=== PATIENT | female | born 1970 | race Hispanic/Latino ===

== ENCOUNTER → 2022-09-29 12:29 | Outpatient (CLI) | payer SELFPAY ==
--- NOTE | ~2022-09-29 | MMUS_ITS ---
EXAMINATION: MM diagnostic sim BI w buddy, US breast RT limited HISTORY: Palpable right axillary abnormality TECHNIQUE: Additional 3-D tomosynthesis images of the breasts were performed and synthetic 2-D images were generated. CAD analysis was submitted and interpreted. High resolution Limited right breast ult rasound was performed. COMPARISON: No prior studies for comparison. BREAST PARENCHYMAL COMPOSITION: BREAST PARENCHYMAL COMPOSITION: There are scattered areas of fibroglandular density. FINDINGS: MAMMOGRAPHIC FINDINGS: There are no suspicious masses, calcifications or architectural distortion in either breast to sugges t. ULTRASOUND: Limited ultrasound of the right axilla: Normal heterogeneous echotexture without focal solid or cysti c mass. IMPRESSION: 1. No evidence for malignancy in either breast. 2. Routine yearly screening mammogram and regular clinical breast examination are recommended. BI-RADS Category 1: Negative Reviewed, dictated and finalized at location A. IMPRESSION: 1. No evidence for malignancy in either breast. 2. Routine yearly screening mammogram and regular clinical breast examination a re recommended. BI-RADS Category 1: Negative
== END ==
PROVIDERS: PCP Obstetrics & Gynecology; Visit Provider Obstetrics & Gynecology
DX: Z12.31 Encounter for screening mammogram for malignant neoplasm of breast (principal)
CPT/HCPCS: 76642; 77062; 77066; G0279

== ENCOUNTER 2025-01-14 11:26 | Emergency (ER) | payer SELFPAY ==
--- NOTE | ~2025-01-14 | CT_ITS ---
EXAMINATION: CT abdomen pelvis w con DATE: 01/14/2025 14:51 INDICATION: Epigastric abdominal pain TECHNIQUE: Computed tomography (CT) of the abdomen and pelvis was performed with 100 mL Omnipaque-350 intravenous contrast. Automated exposure control and iterative reconstruction technique were employe d. The dose-length product was 312.07 mGy-cm. COMPARISON: 03/18/2019. FINDINGS: Lower thorax: Unremarkable Liver: Stable peripheral hypodensity in the left lobe, likely cyst or hemangioma. Biliary/Gallbladder: Gallbladder is normal. No bile duct dilation. Pancreas: No mass or duct dilation. Spleen: Normal. Adrenals: Stable left adrenal lesion, likely adenoma. Normal right adrenal gland. Kidneys: No suspicious mass, obstructing stone, or hydronephrosis. There is contrast excretion into t he renal collecting systems. GI tract: No small or large bowel dilation. Normal appendix. Mesentery/Peritoneum: No ascites, mass, or free air. Retroperitoneum: No mass. Pelvis: Pelvic organs are within normal limits. Soft Tissues: Small fat-containing uncomplicated umbilical hernia. Bones: No acute osseous finding. IMPRESSION: No acute abdominopelvic process detected Reviewed, dictated and finalized at location K.
[2025-01-14 11:56] VITALS: BP 108/67; PULSE 84; RESP 20; TEMP 36.6; O2SAT 99
--- NOTE | 2025-01-14 13:33 | ED.GENADULT ---
HPI - General Adult General Chief complaint: Abdominal Pain Stated complaint: abdominal pain, nausea Time Seen by Provider: 01/14/25 13:07 History of Present Illness HPI narrative: 54-year-old female presenting to the emergency department for evaluation of epigastric abdominal pain. Patient reports that she does have a prior history of gastritis and has been taking pantoprazole and motor edema patient has also been taking naproxen. Patient had a evaluation in the emergency department approximately 8 days ago was told she had worsening symptoms she would need to have follow-up with GI. Patient was not provided outpatient follow-up for GI. Patient is [id number], translation services were utilized. Related Data Allergies Allergy/AdvReac Type Severity Reaction Status Date / Time No Known Allergies Allergy Verified 01/14/25 12:07 Review of Systems Review of Systems: All systems reviewed & are unremarkable except as noted in HPI and below Exam Narrative: APPEARANCE: Well appearing, no pain, no distress, well-nourished. HEAD: normocephalic, atraumatic. EYES: PERRLA/EOMI, conjunctivae clear. NOSE: Normal no drainage EARS:TMS clear with good light reflex. THROAT: Pharynx clear, no exudate. NECK: Supple. No adenopathy, no masses. RESPIRATORY: Airway patent, respirations nonlabored. Clear to auscultation bilaterally, no rales, rhonchi, wheezing. CARDIOVASCULAR: Regular rate and rhythm without murmurs rubs or gallops. ABDOMINAL: Soft, nontender, nondistended, normal bowel sounds MUSCULOSKELETAL: Moves all extremities. Strength/ROM intact, No edema, No calf tenderness. NEURO: Alert. Cranial nerves II through XII intact. Good gait. Good coordination SKIN: Warm, dry. Normal Color Course Vital Signs Vital signs: Vital Signs Temperature 97.9 F 01/14/25 11:56 Pulse Rate 84 01/14/25 11:56 Respiratory Rate 20 01/14/25 11:56 Blood Pressure 108/67 01/14/25 11:56 Pulse Oximetry 99 01/14/25 11:56 Oxygen Delivery Room Air 01/14/25 11:56 Temperature 97.9 F 01/14/25 11:56 Pulse Rate 68 01/14/25 16:23 Respiratory Rate 18 01/14/25 16:23 Blood Pressure 107/69 01/14/25 16:23 Pulse Oximetry 98 01/14/25 16:23 Oxygen Delivery Room Air 01/14/25 11:56 Medical Decision Making MDM Narrative Medical decision making narrative: 54-year-old female present to the emergency department for evaluation for epigastric abdominal pain. Symptoms were resolved after the GI cocktail. Patient was treated with IV Protonix as well. Patient is afebrile with no leukocytosis hemoglobin of 13.5. Patient's INR 0.9 and patient has no acute abnormalities on her CMP with a negative lipase. CT abdomen pelvis shows no acute abnormalities. On re-evaluation patient states she does feel significantly improved and patient and family are updated the results of the workup and plan for treatment for home and outpatient follow-up. Differential Diagnosis Differential Diagnosis: Colitis, diverticulitis, bowel obstruction, hiatal hernia, gastritis, esophagitis, esophageal obstruction Vital Signs Vital Signs: Vital Signs Temperature 97.9 F 01/14/25 11:56 Pulse Rate 84 01/14/25 11:56 Respiratory Rate 20 01/14/25 11:56 Blood Pressure 108/67 01/14/25 11:56 Pulse Oximetry 99 01/14/25 11:56 Oxygen Delivery Room Air 01/14/25 11:56 Temperature 97.9 F 01/14/25 11:56 Pulse Rate 68 01/14/25 16:23 Respiratory Rate 18 01/14/25 16:23 Blood Pressure 107/69 01/14/25 16:23 Pulse Oximetry 98 01/14/25 16:23 Oxygen Delivery Room Air 01/14/25 11:56 Lab Data Lab results reviewed: Yes I reviewed the patient's lab results. 01/14/25 13:56 01/14/25 13:56 Labs: Lab Results 01/14/25 01/14/25 Range/Units 13:56 14:08 WBC 7.1 (4.5-10.0) K/mm3 RBC 4.56 (4.2-5.4) M/mm3 Hgb 13.5 (12.0-15.0) g/dL Hct 41.9 (37.0-47.0) % MCV 91.9 (80-100) fl MCH 29.6 (26-34) pg MCHC 32.2 (32-36) g/dl RDW 12.8 (11.5-14.5) % Plt Count 266 (150-375) k/mm3 MPV 10.2 (7.4-10.4) fl Immature Gran % (Auto) 0.1 (0-0.5) % Neut % (Auto) 65.3 (45.5-73.1) % Lymph % (Auto) 28.1 (18.3-44.2) % [place] % (Auto) 5.6 (2.6-8.5) % Eos % (Auto) 0.6 (0-4.4) % Baso % (Auto) 0.3 (0.2-1.2) % Lymph # (Auto) 1.99 (0.9-3.2) K/mm3 [place] # (Auto) 0.4 (0.1-0.6) K/mm3 Eos # (Auto) 0.0 (0-0.3) K/mm3 Baso # (Auto) 0.0 (0.0-0.1) K/mm3 Abs Immat Gran (auto) 0.01 (0.00-0.031) K/mm3 Absolute Neuts (auto) 4.6 (1.3-6.7) K/mm3 Absolute Nucleated RBC 0.000 (0.0-0.012) K/mm3 Nucleated RBC % 0.0 (0.0-0.2) % PT 12.8 (11.1-14.7) Seconds INR 0.9 APTT 31.1 (22.3-36.8) Seconds Sodium 142 (137-145) mmol/L Potassium 4.0 (3.4-5.0) mmol/L Chloride 107 (98-107) mmol/L Carbon Dioxide 27 (22-30) mmol/L Anion Gap 8 (4-12) mmol/L BUN 11 (7-17) mg/dL Creatinine 0.76 (0.7-1.0) mg/dL Estim Creat Clear Calc 59 ml/min Estimated GFR > 60 (59 - ) Glucose 105 (65-110) mg/dL Lactic Acid 1.2 (0.7-2.0) mmol/L Calcium 9.5 (8.4-10.2) mg/dL Total Bilirubin 0.8 (0.2-1.3) mg/dL AST 43 H (14-36) U/L ALT 30 (6-35) U/L Alkaline Phosphatase 76 (38-126) U/L Total Protein 8.4 H (6.3-8.2) g/dL Albumin 4.6 (3.5-5.1) g/dL Lipase 82 (23-300) U/L Imaging Data Radiologist's impression: Impressions Abdomen/Pelvis CT 01/14/25 15:03 IMPRESSION: No acute abdominopelvic process detected Discharge Plan Discharge Clinical Impression: Epigastric abdominal pain Patient Disposition: Home Condition: Stable Instructions: Antibiotic Form, Diet for Stomach Ulcers and Gastritis (ED), Abdominal Pain (ED) Additional Instructions: Avoid NSAIDs such as naproxen. Take your pantoprazole and famotidine as directed. Follow a bland diet. Maalox as needed for recurrent symptoms. Have close follow-up with GI to for further evaluation including possible endoscopy. If you have any worsening symptoms please call or return to the emergency department. Patient Language: Indonesian Follow-up/Referrals: Austin Purcell MD [Primary Care Provider] - Francisco Rosenthal MD [Physician] -
[2025-01-14] MEDS: BELLADONNA ALK/PHENOB ELIX 10 ML, MAG HYDROX/ALUMINUM HYD/SIMETH 30 ML, LIDOCAINE 2% VI... PO (13:39)
[2025-01-14] MEDS: PANTOPRAZOLE SODIUM IV 40 MG VIAL IV PUSH (13:46)
[2025-01-14 13:48] VITALS: BP 129/76; PULSE 90; RESP 14; O2SAT 100
[2025-01-14 14:05] LABS: Hematocrit 41.9 % (37.0-47.0); Hemoglobin 13.5 g/dL (12.0-15.0); Immature Granulocyte Percent A 0.1 % (0-0.5); Lymphocytes Absolute Auto 1.99 K/mm3 (0.9-3.2); Mean Corpuscular HGB Conc 32.2 g/dl (32-36); Mean Corpuscular Hemoglobin 29.6 pg (26-34); Mean Corpuscular Volume 91.9 fl (80-100); Nucleated Red Blood Cells Absolute Auto 0.000 K/mm3 (0.0-0.012); Nucleated Red Blood Cells Perc 0.0 % (0.0-0.2); Platelet Count Result 266 k/mm3 (150-375); Red Blood Count 4.56 M/mm3 (4.2-5.4); White Blood Count 7.1 K/mm3 (4.5-10.0)
[2025-01-14 14:16] LABS: INR 0.9; Prothrombin Time 12.8 Seconds (11.1-14.7)
[2025-01-14 14:17] LABS: Partial Thromboplastin Time 31.1 Seconds (22.3-36.8)
[2025-01-14 14:20] LABS: Alanine Aminotransferase 30 U/L (6-35); Albumin Level 4.6 g/dL (3.5-5.1); Alkaline Phosphatase 76 U/L (38-126); Anion Gap 8 mmol/L (4-12); Aspartate Amino Transferase 43 U/L (14-36); Bilirubin,Total 0.8 mg/dL (0.2-1.3); Blood Urea Nitrogen 11 mg/dL (7-17); Calcium 9.5 mg/dL (8.4-10.2); Carbon Dioxide 27 mmol/L (22-30); Chloride 107 mmol/L (98-107); Estimated CRCL calculation 59 ml/min; Estimated Glomerular Filt Rate > 60; Glucose 105 mg/dL (65-110); Lipase 82 U/L (23-300); Potassium 4.0 mmol/L (3.4-5.0); Sodium 142 mmol/L (137-145); Total Protein 8.4 g/dL (6.3-8.2)
[2025-01-14 16:23] VITALS: BP 107/69; PULSE 68; RESP 18; O2SAT 98
== END 2025-01-14 16:25 | disposition home or self-care (01) ==
PROVIDERS: Emergency Provider Emergency Medicine; PCP Obstetrics & Gynecology
DX: R10.13 Epigastric pain (principal)
CPT/HCPCS: 36415; 74177; 80053; 83605; 83690; 85025; 85610; 85730; 96374; 99284; A9270; J2470; Q9967

== ENCOUNTER 2025-02-13 21:41 | Emergency (ER) | payer SELFPAY ==
--- NOTE | ~2025-02-13 | XR_ITS ---
Portable chest x-ray Comparison: None Clinical History: Pain Findings: Lungs are clear, without focal consolidation or pleural effusion. Cardiomediastinal silho uette is unremarkable. Bones and soft tissues are unremarkable. Impression: Normal chest. Reviewed, dictated and finalized at location M. Impression: Normal chest.
--- NOTE | ~2025-02-13 | CT_ITS ---
CT of the Abdomen and Pelvis: Indication: Abdominal pain Technique: 2.5 mm axial scans were obtained through the abdomen and pelvis following intravenous adm inistration of 100 cc of Omnipaque 350. Dose reduction technique was used on this scan by utilizing a utomated exposure control and iterative reconstruction technique. The dose-length product (DLP) was 3 20.94 mGy-cm. COMPARISON: 01/14/2025 and 03/18/2019 Findings: Scans through the lung bases are unremarkable. The liver, spleen, pancreas, gallbladder, revealing, and kidneys are within normal limits. 1.9 cm lef t adrenal nodule is stable dating back to 2018. No evidence of aortic aneurysm. No lymphadenopathy. No bowel obstruction or bowel wall thickening. There is no evidence to suggest acute appendicitis. Images through the pelvis were performed. Urinary bladder unremarkable. No pelvic mass. No ascites. Impression: No acute abnormality. 1.9 cm left adrenal nodule is stable since 2018, therefore consistent with benign adenoma. Reviewed, dictated and finalized at location . Impression: No acute abnormality. 1.9 cm left adrenal nodule is stable since 2018, therefore consistent with sylvester gn adenoma.
[2025-02-13 21:45] VITALS: BP 138/79; PULSE 65; RESP 16; TEMP 36.6; O2SAT 100
[2025-02-14 00:29] VITALS: PULSE 53; RESP 18; O2SAT 100
[2025-02-14 00:30] VITALS: PULSE 60; RESP 19; O2SAT 99
[2025-02-14 00:31] VITALS: BP 144/79; PULSE 57; RESP 22; O2SAT 100
--- NOTE | 2025-02-14 00:32 | ECG_ITS ---
Test Date: 2025-02-14 02:16:07 Measurements Intervals Inez Rate: 61 P: 20 SD: 127 QRS: -2 QRSD: 97 T: 14 QT: 433 QTc: 437 Interpretive Statements SINUS RHYTHM BORDERLINE T WAVE ABNORMALITY- INFERIOR LEADS BASELINE ARTIFACT- I, II, III, AVR, AVL, AVF BORDERLINE ECG No previous ECG available for comparison Electronically Signed On 02-14-2025 06:23:52 CDT by Bud Rodriguez D.O.
--- NOTE | 2025-02-14 00:56 | PC.NURSE ---
pt refused lab draw from pct. EDOmari Andino aware and will speak with pt.
[2025-02-14 01:04] VITALS: PULSE 69; RESP 16; O2SAT 100
[2025-02-14] MEDS: FAMOTIDINE 20 MG/2 ML VIAL IV PUSH (01:56)
--- NOTE | 2025-02-14 01:56 | ED.ABDPAIN ---
HPI - Abdominal Pain General Chief Complaint: Abdominal Pain <Shelby Santana PA-C - Last Filed: 02/15/25 18:15> Stated Complaint: abdominal pain x3 months <Shelby Santana PA-C - Last Filed: 02/15/25 18:15> Time Seen by Provider: 02/14/25 00:29 <Shelby Santana PA-C - Last Filed: 02/15/25 18:15> History of Present Illness HPI narrative: 54-year-old female presents to the emergency department with family at bedside for epigastric abdominal pain for 9 weeks. Patient describes the pain in her epigastrium as an intermittent stabbing pain and bloating sensation with associated belching. She states the pain feels immediately better after eating and then worsens again. She reports associated nausea but no vomiting. She states over the past 3 days the pain is now radiated into her right lower chest. She is also endorsing urinary frequency over the past 3 days. She denies fever or dysuria. The patient was evaluated in our ED 1 month ago for epigastric abdominal pain. At the time she had a negative workup including a CT abdomen pelvis. She is advised follow-up with GI. Her family bedside states she has been to several different ERs with the same complaints and has had multiple workups which have been largely unrevealing. She is prescribed Protonix 40 mg which she has been taking with some improvement. They note that she recently went to [place] a couple weeks ago to visit a ?[facility] doctor? that gave her Toradol for her pain which she has been taking without improvement. The patient also reportedly followed up with [facility] and [place] where she had a colonoscopy and endoscopy performed a few weeks ago. Pt's family at bedside states they were told that there was ?swelling in the stomach? after the endoscopy. They state they are still waiting for the official report and are scheduled to f/u with the GI clinic on 02/23/2025. She denies prior abdominal surgeries. Last bowel movement was today and normal. Denies melena or hematochezia. <Shelby Santana PA-C - Last Filed: 02/15/25 18:15> Related Data Allergies/Adverse Reactions: Allergies Allergy/AdvReac Type Severity Reaction Status Date / Time No Known Allergies Allergy Verified 01/14/25 12:07 <Shelby Santana PA-C - Last Filed: 02/15/25 18:15> Review of Systems Review of Systems: All systems reviewed & are unremarkable except as noted in HPI and below <Shelby Santana PA-C - Last Filed: 02/15/25 18:15> Exam Narrative: GENERAL: Well-appearing, well-nourished, and in no acute distress. HEAD: Normocephalic, atraumatic. EYES: EOMI. ENT: Nares clear, no rhinorrhea or epistaxis. Mucous membranes moist. NECK: Supple. CHEST: Clear to auscultation. No respiratory distress. Tenderness to right chest wall and palpation with no overlying skin changes or deformities. Right breast is unremarkable with no areas of erythema no induration or fluctuation, no nipple inversion or drainage HEART: Regular rate and rhythm. No murmur heard. Normal peripheral pulses. ABDOMEN: Normoactive bowel sounds. Abdomen soft with tenderness in the epigastrium. No rebound or rigidity. No right upper quadrant tenderness, negative Guerrero sign EXTREMITIES: Normal range of motion. No edema. SKIN: Warm, dry, no rash. NEURO: No focal deficits. Alert and oriented x3 <Shelby Santana PA-C - Last Filed: 02/15/25 18:15> Course GASTROINTESTINAL TECHNICIAN/PA Physician Supervision Patient signed out to me pending urinalysis and CT scan. CT scan unremarkable. Urinalysis with some abnormalities. I did assess patient at bedside, interpretive services [facility] #[id number] was used. Patient does note that she has been having urinary urgency and frequency but denies any dysuria or hematuria. For this reason we will treat as urinary tract infection given she seems symptomatic. First dose antibiotic given the emergency department and the rest of the course prescribed. I did review her medications that she is taking and she is on Protonix, fiber, papaya enzyme, Atarax, cimetidine, and ketorolac. She notes that she wakes up very tired and dizzy. She was prescribed the Atarax from a [place] [facility] in [place]. When asked if it was for itching or anxiousness it seems that was for the latter. We discussed that she could trial cutting the pill in half as it is 50 mg verses discontinuing it to see if her morning symptoms resolve. She denies any antibiotic allergies. She has follow-up [facility]. She does not have a primary care physician so provided contact information for 1. Otherwise stable for discharge. <Kenyatta Parrish MD - Last Filed: 02/14/25 05:04> Vital Signs Vital signs: Vital Signs Temperature 98 F 02/13/25 21:45 Pulse Rate 65 02/13/25 21:45 Respiratory Rate 16 02/13/25 21:45 Blood Pressure 138/79 02/13/25 21:45 Pulse Oximetry 100 02/13/25 21:45 Oxygen Delivery Room Air 02/13/25 21:45 Temperature 98 F 02/13/25 21:45 Pulse Rate 69 02/14/25 01:04 Respiratory Rate 16 02/14/25 01:04 Blood Pressure 144/79 H 02/14/25 00:31 Pulse Oximetry 100 02/14/25 01:04 Oxygen Delivery Room Air 02/13/25 21:45 <Shelby Santana PA-C - Last Filed: 02/15/25 18:15> Vital Signs Temperature 98 F 02/13/25 21:45 Pulse Rate 65 02/13/25 21:45 Respiratory Rate 16 02/13/25 21:45 Blood Pressure 138/79 02/13/25 21:45 Pulse Oximetry 100 02/13/25 21:45 Oxygen Delivery Room Air 02/13/25 21:45 Temperature 98 F 02/13/25 21:45 Pulse Rate 69 02/14/25 01:04 Respiratory Rate 16 02/14/25 01:04 Blood Pressure 144/79 H 02/14/25 00:31 Pulse Oximetry 100 02/14/25 01:04 Oxygen Delivery Room Air 02/13/25 21:45 <Kenyatta Parrish MD - Last Filed: 02/14/25 05:04> MDM - Abdominal Pain MDM Narrative Medical decision making narrative: 54-year-old female presents emergency department for epigastric abdominal pain for the past 9 weeks. Patient endorsing intermittent stabbing pain, bloating and belching. Patient has been evaluated in our ED and reportedly and other ERs with reported negative workups. She has been prescribed Protonix 40 mg which she has been taking with reported improvement. Triage vitals are stable. Patient is afebrile and nontoxic appearing and resting comfortably in exam bed. She does have tenderness in epigastrium into the right chest wall. Shared decision making regarding workup today. They are amenable to EKG, troponin, chest x-ray given reported radiation of pain to the right chest wall. Patient is also agreeable to basic lab work including CBC, CMP, lipase and UA. Patient would like to refrain from imaging until results of lab tests come back and see if she responds well to a GI cocktail and Pepcid EKG shows normal sinus rhythm with a rate of 61 ppm, normal TN interval, normal QRS duration, normal QTC, no ischemic changes. Troponin is undetectable. CXR w/o acute findings. CBC without leukocytosis or anemia. Chemistries with an AST of 41, most recent in January was 43. ALT is 53, most recent in January was 53. Bilirubin and alk-phos are within normal limits. Lipase is within normal limits. Patient re-evaluated. States she had improvement after the Pepcid and GI cocktail but feels her pain is returning. Shared decision making regarding obtaining a CT scan today. She states that she feels that this pain is different than her last presentation and that is now radiating into her right lower chest which is concerning to her. Pt would like to get CT abd/pelvis given mildly elevated liver enzymes. Pending CT results at time of sign-out to Dr. Parrish. <Shelby Santana PA-C - Last Filed: 02/15/25 18:15> Lab Data Result diagrams: 02/14/25 02:00 02/14/25 02:00 <Shelby Santana PA-C - Last Filed: 02/15/25 18:15> Labs: Lab Results 02/14/25 02/14/25 Range/Units 02:00 03:27 WBC 6.6 (4.5-10.0) K/mm3 RBC 4.25 (4.2-5.4) M/mm3 Hgb 12.5 (12.0-15.0) g/dL Hct 39.3 (37.0-47.0) % MCV 92.5 (80-100) fl MCH 29.4 (26-34) pg MCHC 31.8 L (32-36) g/dl RDW 12.6 (11.5-14.5) % Plt Count 224 (150-375) k/mm3 MPV 10.1 (7.4-10.4) fl Immature Gran % (Auto) 0.2 (0-0.5) % Neut % (Auto) 53.1 (45.5-73.1) % Lymph % (Auto) 38.5 (18.3-44.2) % Sargent % (Auto) 6.4 (2.6-8.5) % Eos % (Auto) 1.5 (0-4.4) % Baso % (Auto) 0.3 (0.2-1.2) % Lymph # (Auto) 2.54 (0.9-3.2) K/mm3 Sargent # (Auto) 0.4 (0.1-0.6) K/mm3 Eos # (Auto) 0.1 (0-0.3) K/mm3 Baso # (Auto) 0.0 (0.0-0.1) K/mm3 Abs Immat Gran (auto) 0.01 (0.00-0.031) K/mm3 Absolute Neuts (auto) 3.5 (1.3-6.7) K/mm3 Absolute Nucleated RBC 0.000 (0.0-0.012) K/mm3 Nucleated RBC % 0.0 (0.0-0.2) % Sodium 133 L (137-145) mmol/L Potassium 3.9 (3.4-5.0) mmol/L Chloride 103 (98-107) mmol/L Carbon Dioxide 24 (22-30) mmol/L Anion Gap 6 (4-12) mmol/L BUN 13 (7-17) mg/dL Creatinine 0.79 (0.7-1.0) mg/dL Estim Creat Clear Calc 59 ml/min Estimated GFR > 60 (59 - ) Glucose 109 (65-110) mg/dL Calcium 9.1 (8.4-10.2) mg/dL Total Bilirubin 0.9 (0.2-1.3) mg/dL AST 41 H (14-36) U/L ALT 53 H (6-35) U/L Alkaline Phosphatase 73 (38-126) U/L Troponin I < 0.012 (0.000-0.034) ng/mL Total Protein 7.7 (6.3-8.2) g/dL Albumin 4.4 (3.5-5.1) g/dL Lipase 104 (23-300) U/L Urine Color Nakia (Yellow) Urine Appearance Clear (Clear) Urine pH 6.0 (5.0-9.0) Ur Specific [place] 1.009 (1.001-1.035) Urine Protein Negative (Negative) mg/dL Urine Glucose (UA) Negative (Negative) mg/dL Urine Ketones Negative (Negative) mg/dL Ur Blood (Man) Trace (Negative) Urine Nitrate Negative (Negative) Urine Bilirubin Negative (Negative) Urine Urobilinogen 0.2 (<2.0) mg/dL Leukocyte Esterase Rfl 2+ H (Negative) LUIS MANUEL/UL Urine RBC 3-5 H (0-2) /hpf Urine WBC 11-20 H (0-3) /hpf Ur Squamous Epith Cells None seen (Few) /hpf Urine Bacteria Trace /hpf Urine Casts 0-2 <Shelby Santana PA-C - Last Filed: 02/15/25 18:15> Lab Results 02/14/25 02/14/25 Range/Units 02:00 03:27 WBC 6.6 (4.5-10.0) K/mm3 RBC 4.25 (4.2-5.4) M/mm3 Hgb 12.5 (12.0-15.0) g/dL Hct 39.3 (37.0-47.0) % MCV 92.5 (80-100) fl MCH 29.4 (26-34) pg MCHC 31.8 L (32-36) g/dl RDW 12.6 (11.5-14.5) % Plt Count 224 (150-375) k/mm3 MPV 10.1 (7.4-10.4) fl Immature Gran % (Auto) 0.2 (0-0.5) % Neut % (Auto) 53.1 (45.5-73.1) % Lymph % (Auto) 38.5 (18.3-44.2) % Sargent % (Auto) 6.4 (2.6-8.5) % Eos % (Auto) 1.5 (0-4.4) % Baso % (Auto) 0.3 (0.2-1.2) % Lymph # (Auto) 2.54 (0.9-3.2) K/mm3 Sargent # (Auto) 0.4 (0.1-0.6) K/mm3 Eos # (Auto) 0.1 (0-0.3) K/mm3 Baso # (Auto) 0.0 (0.0-0.1) K/mm3 Abs Immat Gran (auto) 0.01 (0.00-0.031) K/mm3 Absolute Neuts (auto) 3.5 (1.3-6.7) K/mm3 Absolute Nucleated RBC 0.000 (0.0-0.012) K/mm3 Nucleated RBC % 0.0 (0.0-0.2) % Sodium 133 L (137-145) mmol/L Potassium 3.9 (3.4-5.0) mmol/L Chloride 103 (98-107) mmol/L Carbon Dioxide 24 (22-30) mmol/L Anion Gap 6 (4-12) mmol/L BUN 13 (7-17) mg/dL Creatinine 0.79 (0.7-1.0) mg/dL Estim Creat Clear Calc 59 ml/min Estimated GFR > 60 (59 - ) Glucose 109 (65-110) mg/dL Calcium 9.1 (8.4-10.2) mg/dL Total Bilirubin 0.9 (0.2-1.3) mg/dL AST 41 H (14-36) U/L ALT 53 H (6-35) U/L Alkaline Phosphatase 73 (38-126) U/L Troponin I < 0.012 (0.000-0.034) ng/mL Total Protein 7.7 (6.3-8.2) g/dL Albumin 4.4 (3.5-5.1) g/dL Lipase 104 (23-300) U/L Urine Color Nakia (Yellow) Urine Appearance Clear (Clear) Urine pH 6.0 (5.0-9.0) Ur Specific [place] 1.009 (1.001-1.035) Urine Protein Negative (Negative) mg/dL Urine Glucose (UA) Negative (Negative) mg/dL Urine Ketones Negative (Negative) mg/dL Ur Blood (Man) Trace (Negative) Urine Nitrate Negative (Negative) Urine Bilirubin Negative (Negative) Urine Urobilinogen 0.2 (<2.0) mg/dL Leukocyte Esterase Rfl 2+ H (Negative) LUIS MANUEL/UL Urine RBC 3-5 H (0-2) /hpf Urine WBC 11-20 H (0-3) /hpf Ur Squamous Epith Cells None seen (Few) /hpf Urine Bacteria Trace /hpf Urine Casts 0-2 <Kenyatta Parirsh MD - Last Filed: 02/14/25 05:04> Imaging Data Radiologist's impression: ITS Impressions Chest X-Ray 02/14/25 05:40 Impression: Normal chest. Abdomen/Pelvis CT 02/14/25 05:46 Impression: No acute abnormality. 1.9 cm left adrenal nodule is stable since 2019, therefore consistent with benign adenoma. <Shelby Santana PA-C - Last Filed: 02/15/25 18:15> ITS Impressions Chest X-Ray 02/14/25 05:40 Impression: Normal chest. Abdomen/Pelvis CT 02/14/25 05:46 Impression: No acute abnormality. 1.9 cm left adrenal nodule is stable since 2019, therefore consistent with benign adenoma. CT Abd Pelvis w/ contrast STat Rad no acute intra-abdominal or pelvic findings. <Kenyatta Parrish MD - Last Filed: 02/14/25 05:04> Discharge Plan Discharge Clinical Impression: Epigastric abdominal pain, UTI (urinary tract infection) <Shelby Santana PA-C - Last Filed: 02/15/25 18:15> Patient Disposition: Home <Shelby Santana PA-C - Last Filed: 02/15/25 18:15> Condition: Stable <Shelby Santana PA-C - Last Filed: 02/15/25 18:15> Instructions: Antibiotic Form, Urinary Tract Infection in Women (DC), Epigastric Pain (ED) <Shleby Santana PA-C - Last Filed: 02/15/25 18:15> Additional Instructions: Continue taking your medications, especially the pantoprazole/Protonix. If desired, could trial half a dose of the Atarax that you take at night or discontinue this medication if it is causing too many side effects. [facility]-up with [facility], as indicated. Follow-up with a primary care physician. Because you do not have 1 the name of the doctors listed below. Alternatively, there is a provider that speaks [place] if you prefer though I do not know if they are accepting patients. Her name is Anju Dwyer ([phone]). <Shelby Santana PA-C - Last Filed: 02/15/25 18:15> Patient Language: [place] <Shelby Santana PA-C - Last Filed: 02/15/25 18:15> Prescriptions: New sulfamethoxazole-trimethoprim [Bactrim DS] 800-160 mg tablet 1 tablet PO Q12H 5 Days Qty: 9 0RF Rx Instructions: Received 1st dose in the emergency department 02/14/2025 5:00 a.m. <Shelby Santana PA-C - Last Filed: 02/15/25 18:15> Follow-up/Referrals: Austin Purcell MD [Primary Care Provider] - Nikolas García MD [Physician] - <Sehlby Santana PA-C - Last Filed: 02/15/25 18:15> Stand Alone Forms: Work/School Release IP <Shelby Santana PA-C - Last Filed: 02/15/25 18:15> Time of Disposition: 05:03 <Shelby Santana PA-C - Last Filed: 02/15/25 18:15> 05:03 <Kenyatta Parrish MD - Last Filed: 02/14/25 05:04>
[2025-02-14] MEDS: BELLADONNA ALK/PHENOB ELIX 10 ML, MAG HYDROX/ALUMINUM HYD/SIMETH 30 ML, LIDOCAINE 2% VI... PO (01:57)
[2025-02-14 02:07] LABS: Hematocrit 39.3 % (37.0-47.0); Hemoglobin 12.5 g/dL (12.0-15.0); Immature Granulocyte Percent A 0.2 % (0-0.5); Lymphocytes Absolute Auto 2.54 K/mm3 (0.9-3.2); Mean Corpuscular HGB Conc 31.8 g/dl (32-36); Mean Corpuscular Hemoglobin 29.4 pg (26-34); Mean Corpuscular Volume 92.5 fl (80-100); Nucleated Red Blood Cells Absolute Auto 0.000 K/mm3 (0.0-0.012); Nucleated Red Blood Cells Perc 0.0 % (0.0-0.2); Platelet Count Result 224 k/mm3 (150-375); Red Blood Count 4.25 M/mm3 (4.2-5.4); White Blood Count 6.6 K/mm3 (4.5-10.0)
[2025-02-14 02:20] LABS: Alanine Aminotransferase 53 U/L (6-35); Albumin Level 4.4 g/dL (3.5-5.1); Alkaline Phosphatase 73 U/L (38-126); Anion Gap 6 mmol/L (4-12); Aspartate Amino Transferase 41 U/L (14-36); Bilirubin,Total 0.9 mg/dL (0.2-1.3); Blood Urea Nitrogen 13 mg/dL (7-17); Calcium 9.1 mg/dL (8.4-10.2); Carbon Dioxide 24 mmol/L (22-30); Chloride 103 mmol/L (98-107); Estimated CRCL calculation 59 ml/min; Estimated Glomerular Filt Rate > 60; Glucose 109 mg/dL (65-110); Lipase 104 U/L (23-300); Potassium 3.9 mmol/L (3.4-5.0); Sodium 133 mmol/L (137-145); Total Protein 7.7 g/dL (6.3-8.2)
[2025-02-14 02:31] LABS: Troponin I < 0.012 ng/mL (0.000-0.034)
[2025-02-14 03:37] LABS: Non Pathogenic Casts 0-2
[2025-02-14 03:46] LABS: Add Urine Microscopic? YES; Appearance Urine Clear (Clear); Glucose Urine UA Negative (Negative); Leukocyte Esterase Ur 2+ LEU/UL (Negative); Nitrate Urine Negative (Negative); Specific Grav Ur 1.009 (1.001-1.035)
[2025-02-14] MEDS: SULFAMETHOXAZOLE/TRIMETHOPRIM 800/160 MG DS TABLET 1 TAB PO (05:18)
== END 2025-02-14 05:33 | disposition home or self-care (01) ==
PROVIDERS: Physician Assistant; Emergency Provider Student in an Organized Health Care Education/Training Program; PCP Obstetrics & Gynecology
DX: N39.0 Urinary tract infection, site not specified (principal); R10.13 Epigastric pain; E27.9 Disorder of adrenal gland, unspecified
CPT/HCPCS: 36415; 71045; 74177; 80053; 81001; 83690; 84484; 85025; 87086; 93005; 96374; 99284; A9270; Q9967